=== PATIENT | male | born 1935 | race Caucasian/White ===

== ENCOUNTER 2017-12-11 12:34 | Emergency (ER) | payer OTHER, BC ==
[2017-12-11] MEDS ORDERED: TRAMADOL HCL 50 MG TAB ONE (13:31)
--- NOTE | 2017-12-11 14:58 | RAD REPORT ---
EXAM DESCRIPTION: RAD - Hip Right 2 View - 12/11/2017 2:46 pm CLINICAL HISTORY: Pain, difficulty with weight-bearing. COMPARISON: None. FINDINGS: Right hip, 2 projections and right femur 4 projections are submitted. 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 No fracture, dislocation or AVN. Vascular calcification is noted. If pain persists or progresses, fo llowup MR imaging would be useful for further detailed assessment.
--- NOTE | 2017-12-11 15:01 | ER ---
Nurse's Notes [facility] Name: Manuel Douglas Age: 82 yrs Sex: Male : 1935 Arrival Date: 12/11/2017 Time: 12:38 Bed 8 Private MD: Diagnosis: Pain in right hip Presentation: 12/11 12:43 Presenting complaint: Patient states: I have arthritis in my hip and I have been having la1 increasing pain in my right hip, pt able to bear weight, denies any recent falls or trauma. Transition of care: patient was not received from another setting of care. Onset of symptoms was December 11, 2017. Initial Sepsis Screen: Does the patient meet any 2 criteria? No. Patient's initial sepsis screen is negative. Does the patient have a suspected source of infection? No. Patient's initial sepsis screen is negative. Care prior to arrival: None. 12:43 Method Of Arrival: Wheelchair la1 12:43 Acuity: JR 4 la1 Historical: - Allergies: 12:44 No Known Allergies; la1 - PMHx: 12:44 Hypertension; High Cholesterol; Alzheimers; Arthritis; la1 - Immunization history:: Adult Immunizations. - Social history:: Smoking status: Patient/guardian denies using tobacco. Screenin:45 Abuse screen: Denies threats or abuse. Denies injuries from another. Nutritional hb screening: No deficits noted. Tuberculosis screening: No symptoms or risk factors identified. Fall Risk None identified. Assessment: 13:00 General: Appears in no apparent distress. Behavior is calm, cooperative. Pain: Pain hb currently is 6 out of 10 on a pain scale. Neuro: Level of Consciousness is awake, alert, obeys commands, Oriented to person, place, time, situation. Cardiovascular: Capillary refill < 3 seconds Patient's skin is warm and dry. Respiratory: Airway is patent Trachea midline Respiratory effort is even, unlabored, Respiratory pattern is regular, symmetrical, Breath sounds are clear bilaterally. GI: No signs and/or symptoms were reported involving the gastrointestinal system. : No signs and/or symptoms were reported regarding the genitourinary system. EENT: No signs and/or symptoms were reported regarding the EENT system. Derm: No signs and/or symptoms reported regarding the dermatologic system. Skin is intact, is healthy with good turgor, Skin is pink, warm \T\ dry. Musculoskeletal: Reports pain in right hip. 14:00 Reassessment: Patient appears in no apparent distress at this time. Patient and/or hb family updated on plan of care and expected duration. Pain level reassessed. Patient is alert, oriented x 3, equal unlabored respirations, skin warm/dry/pink. 15:00 Reassessment: Patient appears in no apparent distress at this time. Patient and/or hb family updated on plan of care and expected duration. Pain level reassessed. Patient is alert, oriented x 3, equal unlabored respirations, skin warm/dry/pink. Patient states symptoms have improved. 15:22 Reassessment: Discharge ordered, awaiting radiology CD at this time. hb Vital Signs: 12:45 BP 128 / 78; Pulse 69; Resp 19; Temp 97.8(O); Pulse Ox 97% on R/A; Weight 80.74 kg; la1 Height 5 ft. 8 in. (172.72 cm); 13:45 BP 126 / 74; Pulse 66; Resp 16; Pulse Ox 100% on R/A; hb 14:45 BP 132 / 76; Pulse 68; Resp 16; Pulse Ox 100% on R/A; hb 12:45 Body Mass Index 27.06 (80.74 kg, 172.72 cm) la1 ED Course: 12:38 Patient arrived in ED. mr 12:44 Triage completed. la1 12:45 Luci Cabrera FNP-C is PHCP. kb 12:45 Wilton Monaco MD is Attending Physician. kb 12:45 Arm band placed on left wrist. la1 13:00 Patient has correct armband on for positive identification. Bed in low position. Call hb light in reach. Side rails up X 1. 13:02 Shauna Lazar, RN is Primary Nurse. hb 14:17 Radiology exam delayed due to patient is not appropriately dressed for the exam at this kp1 time. 14:42 Hip Right 2 View XRAY In Process Unspecified. EDMS 14:42 Femur Right XRAY In Process Unspecified. EDMS 15:22 No provider procedures requiring assistance completed. Patient did not have IV access hb during this emergency room visit. Administered Medications: 13:33 Drug: traMADol 50 mg Route: PO; hb 15:21 Follow up: Response: No adverse reaction; Pain is decreased hb Outcome: 15:00 Discharge ordered by MD. oquendo 15:22 Discharged to home ambulatory, with family. hb 15:22 Condition: stable 15:22 Discharge instructions given to patient, Instructed on discharge instructions, follow up and referral plans. medication usage, Demonstrated understanding of instructions, follow-up care, medications, Prescriptions given X 1. 16:13 Patient left the ED. ae1 Signatures: Dispatcher [employer] EDNV Luci Cabrera, DEAN CERDA-Apple Alejandro mr Josh Gonzalez RN RN la1 Shauna Lazar RN RN hb Hernandez Haas RN RN ae1 Alicia Lang kp1 Corrections: (The following items were deleted from the chart) 15:22 15:00 Reassessment: Patient appears in no apparent distress at this time. Patient hb and/or family updated on plan of care and expected duration. Pain level reassessed. Patient is alert, oriented x 3, equal unlabored respirations, skin warm/dry/pink. Patient states symptoms have improved. hb 15:22 15:00 Reassessment: Discharge ordered, awaiting radiology CD at this time hb hb
--- NOTE | 2017-12-11 15:01 | EDPHYS ---
Physician Documentation [facility] Name: Manuel Douglas Age: 82 yrs Sex: Male : 1935 Arrival Date: 12/11/2017 Time: 12:38 Bed 8 Private MD: ED Physician Wilton Monaco HPI: 12/11 13:19 This 82 yrs old Male presents to ER via Wheelchair with complaints of Hip kb Pain. 13:19 The patient or guardian reports pain. that occurred at home, sustained from a chronic kb condition, There is no obvious deformity, The patient is able to self ambulate. The patient is able to bear their full body weight. There is no radiation of the patient's discomfort. The complaints affect the right hip and right quadriceps. Onset: The symptoms/episode began/occurred last week. Modifying factors: The symptoms are alleviated by nothing, the symptoms are aggravated by nothing. Associated signs and symptoms: Loss of consciousness: the patient experienced no loss of consciousness. Severity of symptoms: At their worst the symptoms were moderate, in the emergency department the symptoms are unchanged. The patient has experienced similar episodes in the past, chronically. The patient has been recently seen by a physician: an orthopedic surgeon, in the office. 13:26 Pt has been having right hip pain that radiates to right knee for a long time. States kb he thinks it started 10 years ago. It has been worse over the last week and his son wanted to make sure nothing was going on with it. States he was seen by ortho for this problem in August and given a steroid injection into the joint that helped up until a week ago. Pt states the pain right now is to femur more than hip. Ambulates without difficulty. had a steroid injection into left knee last week for pain and wanted to get another one in hip, but was told they couldn't give him another one until February. Historical: - Allergies: 12:44 No Known Allergies; la1 - PMHx: 12:44 Hypertension; High Cholesterol; Alzheimers; Arthritis; la1 - Immunization history:: Adult Immunizations. - Social history:: Smoking status: Patient/guardian denies using tobacco. ROS: 13:18 Constitutional: Negative for fever, chills, and weight loss, Cardiovascular: Negative kb for chest pain, palpitations, and edema, Respiratory: Negative for shortness of breath, cough, wheezing, and pleuritic chest pain, Abdomen/GI: Negative for abdominal pain, nausea, vomiting, diarrhea, and constipation, Skin: Negative for injury, rash, and discoloration, Neuro: Negative for headache, weakness, numbness, tingling, and seizure. 13:18 MS/extremity: Positive for pain, of the right hip and right quadriceps. Exam: 13:18 Constitutional: This is a well developed, well nourished patient who is awake, alert, kb and in no acute distress. Head/Face: Normocephalic, atraumatic. Chest/axilla: Normal chest wall appearance and motion. Nontender with no deformity. No lesions are appreciated. Cardiovascular: Regular rate and rhythm with a normal S1 and S2. No gallops, murmurs, or rubs. Normal PMI, no JVD. No pulse deficits. Respiratory: Lungs have equal breath sounds bilaterally, clear to auscultation and percussion. No rales, rhonchi or wheezes noted. No increased work of breathing, no retractions or nasal flaring. Abdomen/GI: Soft, non-tender, with normal bowel sounds. No distension or tympany. No guarding or rebound. No evidence of tenderness throughout. Back: No spinal tenderness. No costovertebral tenderness. Full range of motion. Skin: Warm, dry with normal turgor. Normal color with no rashes, no lesions, and no evidence of cellulitis. MS/ Extremity: Pulses equal, no cyanosis. Neurovascular intact. Full, normal range of motion. Neuro: Awake and alert, GCS 15, oriented to person, place, time, and situation. Cranial nerves II-XII grossly intact. Motor strength 5/5 in all extremities. Sensory grossly intact. Cerebellar exam normal. Normal gait. Vital Signs: 12:45 BP 128 / 78; Pulse 69; Resp 19; Temp 97.8(O); Pulse Ox 97% on R/A; Weight 80.74 kg; la1 Height 5 ft. 8 in. (172.72 cm); 13:45 BP 126 / 74; Pulse 66; Resp 16; Pulse Ox 100% on R/A; hb 14:45 BP 132 / 76; Pulse 68; Resp 16; Pulse Ox 100% on R/A; hb 12:45 Body Mass Index 27.06 (80.74 kg, 172.72 cm) la1 MDM: 12:47 Patient medically screened. kb 13:19 Data reviewed: vital signs, nurses notes. Data interpreted: Pulse oximetry: on room air kb is 97 %. Interpretation: normal. 14:59 Counseling: I had a detailed discussion with the patient and/or guardian regarding: the kb historical points, exam findings, and any diagnostic results supporting the discharge/admit diagnosis, radiology results, the need for outpatient follow up, a orthopedic surgeon, to return to the emergency department if symptoms worsen or persist or if there are any questions or concerns that arise at home. 12/11 12:49 Order name: Hip Right 2 View XRAY; Complete Time: 14:59 kb 12/11 13:02 Order name: Femur Right XRAY kb Administered Medications: 13:33 Drug: traMADol 50 mg Route: PO; hb 15:21 Follow up: Response: No adverse reaction; Pain is decreased hb Disposition: 12/11/17 15:00 Discharged to Home. Impression: Pain in right hip. - Condition is Stable. - Discharge Instructions: Hip Pain, Arthralgia, [id number]. - Prescriptions for Tramadol 50 mg Oral Tablet - take 1 tablet by ORAL route every 8 hours as needed; 12 tablet. - Medication Reconciliation Form, Thank You Letter, Antibiotic Education, Prescription Opioid Use form. - Follow up: Emergency Department; When: As needed; Reason: Worsening of condition. Follow up: Private Physician; When: 2 - 3 days; Reason: Recheck today's complaints, Continuance of care, Re-evaluation by your physician. Addendum: 12/13/2017 08:50 Co-signature as Attending Physician, Wilton Monaco MD I agree with the assessment and c caldera plan of care. Signatures: Dispatcher [employer] EDCO Luci Cabrera, DELIVERY ROOM CLERK-C DELIVERY ROOM CLERK-Wilton Pedro MD MD cha Attema, Lee, RN RN la1 Shauna Lazar, RN RN Hernandez Haas, RODDY RN ae1 Corrections: (The following items were deleted from the chart) 12/11 13:29 13:19 The patient has not recently seen a physician, kb kb 13:29 13:19 The patient has not experienced similar symptoms in the past, kb kb
--- NOTE | 2017-12-13 09:51 | RAD REPORT ---
EXAM DESCRIPTION: RAD - Femur Right - 12/11/2017 2:46 pm CLINICAL HISTORY: Pain, difficulty with weight-bearing. COMPARISON: None. FINDINGS: Right hip, 2 projections and right femur 4 projections are submitted. 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 No fracture, dislocation or AVN. Vascular calcification is noted. If pain persists or progresses, fo llowup MR imaging would be useful for further detailed assessment.
== END 2017-12-11 16:13 | disposition home or self-care (01) ==
LOC: ER 12:34
DX: M25.551 Pain in right hip (principal); I10 Essential (primary) hypertension; E78.00 Pure hypercholesterolemia, unspecified; G30.9 Alzheimer's disease, unspecified; F02.80 Dementia in other diseases classified elsewhere, unspecified severity, without behavioral disturbance, psychotic disturbance, mood disturbance, and anxiety
CPT/HCPCS: 99283